=== PATIENT | female | born 1990 | race Caucasian/White ===

== ENCOUNTER → 2024-07-18 06:49 | Outpatient (REF) | payer BC, SELFPAY | LOC: PNTC 06:49 | PROVIDERS: ATTENDING PHYSICIAN Obstetrics & Gynecology | DX: Z36.0 Encounter for antenatal screening for chromosomal anomalies (principal); Z36.82 Encounter for antenatal screening for nuchal translucency | CPT/HCPCS: 76801; 76813 ==

== ENCOUNTER → 2024-09-13 15:43 | Outpatient (REF) | payer BC, SELFPAY | LOC: PNTC 15:43 | PROVIDERS: ATTENDING PHYSICIAN Obstetrics & Gynecology | DX: O09.529 Supervision of elderly multigravida, unspecified trimester (principal) | CPT/HCPCS: 76811; 93976 ==

== ENCOUNTER → 2024-10-27 16:14 | Outpatient (REF) | payer BC, SELFPAY | LOC: PNTC 16:14 | PROVIDERS: ATTENDING PHYSICIAN Obstetrics & Gynecology | DX: O99.210 Obesity complicating pregnancy, unspecified trimester (principal); O09.819 Supervision of pregnancy resulting from assisted reproductive technology, unspecified trimester; O43.219 Placenta accreta, unspecified trimester | CPT/HCPCS: 76816; 93976 ==

== ENCOUNTER → 2024-12-05 16:17 | Outpatient (REF) | payer BC, SELFPAY | LOC: PNTC 16:17 | PROVIDERS: ATTENDING PHYSICIAN Obstetrics & Gynecology | DX: O09.819 Supervision of pregnancy resulting from assisted reproductive technology, unspecified trimester (principal); O09.529 Supervision of elderly multigravida, unspecified trimester | CPT/HCPCS: 76816 ==

== ENCOUNTER → 2025-01-02 15:43 | Outpatient (REF) | payer BC, SELFPAY | LOC: PNTC 15:43 | PROVIDERS: ATTENDING PHYSICIAN Obstetrics & Gynecology | DX: O09.819 Supervision of pregnancy resulting from assisted reproductive technology, unspecified trimester (principal); O09.529 Supervision of elderly multigravida, unspecified trimester | CPT/HCPCS: 59025; 76816 ==

== ENCOUNTER → 2025-01-09 15:44 | Outpatient (REF) | payer BC, SELFPAY | LOC: PNTC 15:44 | PROVIDERS: ATTENDING PHYSICIAN Obstetrics & Gynecology | DX: O09.819 Supervision of pregnancy resulting from assisted reproductive technology, unspecified trimester (principal); O09.529 Supervision of elderly multigravida, unspecified trimester | CPT/HCPCS: 59025; 76815 ==

== ENCOUNTER 2025-01-20 05:30 | Inpatient (IN) | payer BC, SELFPAY ==
[2025-01-20 05:39] VITALS: BMI 35.4
[2025-01-20 05:57] VITALS: BP 98/68
[2025-01-20] MEDS: LR 1000 IV (06:00)
[2025-01-20 06:13] LABS: Hematocrit 34.7 % (37.0-47.0); Hemoglobin 12.2 g/dL (12.0-16.0); Mean Corp Hgb Conc. 35.2 g/dL (33.0-37.0); Mean Corpuscular Hgb 28.8 pg (27.0-31.0); Mean Platelet Volume 10.4 fL (7.4-10.4); Platelet Count 276 10^3/uL (130-400); Red Blood Cell Count 4.23 10^6/uL (4.20-5.40); Red Cell Dist. Width 13.2 % (11.5-14.5); White Blood Cell Count 13.3 10^3/uL (4.8-10.8)
[2025-01-20] MEDS: ANCEF 10 IV (07:04)
[2025-01-20] MEDS: TYLENOL 1000 MG PO (07:04)
[2025-01-20] MEDS: BICITRA 30 ML PO (07:04)
[2025-01-20] MEDS: PITOCIN 30 UNITS/NSS 500 ML IV (11:34)
[2025-01-20] MEDS: TORADOL 15 MG IV ×2 (14:14→19:55)
[2025-01-20] MEDS: MYLICON 80 MG PO (20:06)
[2025-01-21] MEDS: TORADOL 15 MG IV ×2 (02:10→08:32)
[2025-01-21] MEDS: MYLICON 80 MG PO ×2 (02:16→22:20)
[2025-01-21 06:19] LABS: Hematocrit 29.9 % (37.0-47.0); Hemoglobin 10.3 g/dL (12.0-16.0); Mean Corp Hgb Conc. 34.4 g/dL (33.0-37.0); Mean Corpuscular Hgb 29.2 pg (27.0-31.0); Mean Corpuscular Volume 84.7 fL (81.0-99.0); Mean Platelet Volume 10.8 fL (7.4-10.4); Platelet Count 267 10^3/uL (130-400); Red Blood Cell Count 3.53 10^6/uL (4.20-5.40); Red Cell Dist. Width 13.3 % (11.5-14.5); White Blood Cell Count 16.1 10^3/uL (4.8-10.8)
--- NOTE | 2025-01-21 07:54 | W.PN.ANS.POP ---
Anesthesia Post Operative
- Anesthesia Post Op Note
Vital Signs Stable-See Nursing Note: Yes
Airway Patent: Yes
Adequate Pain Control: Yes
Change in Mental Status: No
Current Postoperative Nausea & Vomiting: No
Anesthesia Complications: No
General Anesthetic Recall: No
Unplanned Admission: No
Post Op Hydration Adequate: Yes
[2025-01-21] MEDS: PRENATAL PLUS 1 TABLET PO (08:32)
[2025-01-21] MEDS: FEOSOL 325 MG PO (10:22)
[2025-01-21] MEDS: MOTRIN 600 MG PO ×2 (15:34→22:20)
[2025-01-21] MEDS: SENOKOT-S 1 TABLET PO (18:26)
[2025-01-21] MEDS: TYLENOL 650 MG PO (22:20)
[2025-01-22] MEDS: TYLENOL 650 MG PO ×2 (04:52→10:42)
[2025-01-22] MEDS: MOTRIN 600 MG PO ×2 (04:52→10:42)
[2025-01-22] MEDS: FEOSOL 325 MG PO (08:07)
[2025-01-22] MEDS: PRENATAL PLUS 1 TABLET PO (08:07)
--- NOTE | 2025-01-22 08:41 | W.DS.TRANS ---
DC Summary - [employer]
-
Discharge Instructions:
Discharge Diagnosis/Procedures delvery
Instructions:
Stand-Alone Forms:
Changes to Home Medications: No
Discharge Medications:
DC Medications w/original date entered in [employer]
vit no.95-ferrous fumarate 28 mg-folic acid 800 mcg tablet () 1 ea PO DAILY Supplement 11/08/20
acetaminophen 325 mg tablet 650 mg (2 x 325 mg) PO Q4HPRN PRN mild pain #0 tabs 01/22/25
calcium carbonate (Calcium Antacid) 400 mg (2 x 200 mg calcium (500 mg)) PO Q6HPRN PRN indigestion #0 tabs 01/22/25
ferrous sulfate 325 mg (65 mg iron) tablet (FeroSul) 325 mg PO DAILY #0 tabs 01/22/25
ibuprofen 600 mg tablet 600 mg PO Q6HPRN PRN cramps #30 tabs 01/22/25
sennosides 8.6 mg-docusate sodium 50 mg tablet 1 tab PO DAILYPRN PRN constipation #0 tabs 01/22/25
simethicone 80 mg chewable tablet 80 mg PO TIDPRN PRN flatulence #0 tabs 01/22/25
Home Medication Changes
Pending Results: No
Total time spent discharging patient (in min): 20
[2025-01-24 13:07] LABS: Syphilis/T. pallidum Ab Reflex Negative (Negative)
== END 2025-01-22 15:11 | disposition home or self-care (01) | DRG 788 ==
LOC: LDRP 05:30
PROVIDERS: ADMITTING PHYSICIAN Obstetrics & Gynecology
PROC: 10D00Z1 Extraction of Products of Conception, Low, Open Approach (ICD-10-PCS; 2025-01-20)
DX: O34.211 Maternal care for low transverse scar from previous cesarean delivery (principal); N85.8 Other specified noninflammatory disorders of uterus; Z3A.39 39 weeks gestation of pregnancy; Z37.0 Single live birth; D50.0 Iron deficiency anemia secondary to blood loss (chronic); O99.02 Anemia complicating childbirth; O69.81X0 Labor and delivery complicated by cord around neck, without compression, not applicable or unspecified
CPT/HCPCS: 88307; 85027; 86780; 86850; 86900; 86901